=== PATIENT | male | born 1955 | race Caucasian/White ===

== ENCOUNTER → 2021-01-05 | Outpatient (CLI) | payer BC, MEDICARE ==
--- NOTE | 2021-01-05 10:08 | Diagnostic Imaging Report ---
EXAMINATION: CT abdomen and pelvis without contrast. TECHNIQUE: Multiple contiguous axial images were obtained through the abdomen and pelvis without the use of intravenous contrast. All CT scans use one or more of the following dose optimizing techniques: automated exposure control, MA and/or KvP adjustment based on patient size and exam type or iterative reconstruction. HISTORY: PROSTATE CANCER COMPARISON: None available. FINDINGS: Lung bases: There is a 0.5 cm right lower lobe pulmonary nodule (series 2 image 7). Solid organs: There is a 2.2 cm right hepatic cyst. Liver is otherwise unremarkable. The gallbladder is normal. There is no biliary ductal dilation. Pancreas is normal. Spleen is normal. Adrenal glands are normal. The kidneys are normal without visualized calculus or hydronephrosis. Bowel: There is a small hiatal hernia. There is scattered colonic diverticulosis. The appendix is normal. Peritoneum: There is no intraperitoneal free fluid or free air. No suspicious lymphadenopathy. Vasculature: Calcification of the aorta without aneurysm. Musculoskeletal: No suspicious osseous lesion or compression fracture. Pelvis: The prostate gland is normal. The urinary bladder is normal. IMPRESSION: 1. No findings of metastatic disease within the abdomen or pelvis. 2. A 0.5 cm right lower lobe pulmonary nodule. Attention on follow-up imaging. Dictated by: Dictated on workstation # [id number]
--- NOTE | 2021-01-05 14:25 | Diagnostic Imaging Report ---
EXAMINATION: Whole body bone scan at 11:48 AM. INDICATION: Prostate cancer. TECHNIQUE: This study was performed following the administration of 27 mCi of 99M technetium MDP. Anterior and posterior whole body images were obtained. COMPARISON: There are no prior Nuclear Medicine bone scans available for comparison. FINDINGS: The CT chest, abdomen, and pelvis exam performed in conjunction with this study failed to show any osseous lesions that would indicate metastatic disease. On this exam, there is no abnormal uptake by the osseous structures to suggest metastatic disease. There is increased activity involving both shoulders and sternoclavicular joints as well as both knee joints. These findings are most likely degenerative in nature. There is excretion of the radiotracer by both kidneys. IMPRESSION: There is no evidence for skeletal metastatic disease or for an acute bony abnormality. Dictated by: Dictated on workstation # [id number]
== END ==
LOC: CARD 09:28
PROVIDERS: ATTEND Urology
DX: C61 Malignant neoplasm of prostate (principal); R91.1 Solitary pulmonary nodule
CPT/HCPCS: 74176; 78306; A9503

== ENCOUNTER → 2021-01-20 | Outpatient (CLI) | payer MEDICARE ==
[~2021-01-20] MED LIST: HOLD METFORMIN - RECEIVED CONTRAST 20 ML VIAL IV SCH; IOHEXOL 350 MG/ML 100 ML (OMNIPAQUE 350) VIAL IV ONE; NS 100 ML (IVPB) BAG IV ONE
[2021-01-20 15:58] LABS: CREATININE SERUM 1.07 MG/DL (0.60-1.30)
--- NOTE | 2021-01-20 16:52 | Diagnostic Imaging Report ---
PROCEDURE: CT chest with contrast only. TECHNIQUE: Multiple contiguous axial images were obtained through the chest after administration of intravenous contrast. Auto Exposure Controls were utilized during the CT exam to meet ALARA standards for radiation dose reduction. INDICATION: 65-year-old male with prostate cancer with previous abnormal spot found on lung. COMPARISONS: CT of the abdomen and pelvis 01/05/2021. FINDINGS: There are a few shotty benign-appearing axillary nodes but no evidence of axillary adenopathy. There is also no evidence of hilar or mediastinal adenopathy. Cardiac contour is normal. The thoracic aortic contour is also normal with no evidence of aneurysm. There is normal arch origin of the great vessels. Pulmonary outflow tract as well as the right and left pulmonary arteries and their segmental branches are patent. Lungs are clear. There is no consolidation, effusion, or pneumothorax. The sub-5 mm nodule in the lateral right lower lobe is again seen unchanged. No other discrete nodule is seen. Limited assessment of the abdomen shows uniform attenuation within the liver. Gallbladder, spleen, and GE junction are normal. There is a small hiatal hernia. There is some minimal mucosal thickening in the distal esophagus most likely associated with reflux. Stomach and duodenal sweep are unremarkable. Pancreas shows sharp margins. Adrenals are normal. Kidneys appear normal in size, position, and contour with symmetrical perfusion of contrast. IMPRESSION: Stable sub-5 mm nodule in the lateral right lower lobe may be a granuloma; however, given history, a repeat CT in six months is recommended. Otherwise, unremarkable postcontrast CT of the chest. Additional nonemergent findings as described above. Dictated by: Dictated on workstation # [id number]
== END ==
LOC: RAD 15:28
PROVIDERS: ATTEND Urology
DX: R91.1 Solitary pulmonary nodule (principal); C61 Malignant neoplasm of prostate
CPT/HCPCS: 36415; 71260; 82565; 84520